=== PATIENT | male | born 2000 | race Caucasian/White ===

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

== ENCOUNTER 2021-01-20 04:00 | Emergency (ER) | payer OTHER ==
[~2021-01-20] VITALS: Ht 177.8 cm; Wt 83.9 kg
[2021-01-20 04:03] VITALS: BP 141/93
[2021-01-20] MEDS ORDERED: NAPR-54 PO (05:09)
[2021-01-20 05:13] VITALS: BP 141/93
== END 2021-01-20 05:12 | disposition home or self-care (01) ==
LOC: MED 04:00
DX: S13.9XXA Sprain of joints and ligaments of unspecified parts of neck, initial encounter (principal); X58.XXXA Exposure to other specified factors, initial encounter; Y93.89 Activity, other specified; Y92.89 Other specified places as the place of occurrence of the external cause; Y99.8 Other external cause status
CPT/HCPCS: 72050; 99283

== ENCOUNTER 2021-06-26 23:33 | Emergency (ER) | payer MEDICAID, OTHER ==
[~2021-06-26] VITALS: Ht 177.8 cm; Wt 88.5 kg
[~2021-06-26 23:33] MED LIST: NAPR-54 PO
[2021-06-26 23:40] VITALS: BP 149/90
--- NOTE | 2021-06-26 23:43 | NUR ---
to lobby a/w bed ambulatory
[2021-06-27] MEDS ORDERED: NAPR-54 PO (01:22)
[2021-06-27] MEDS ORDERED: SULF-59 PO (01:22)
[2021-06-27 01:39] VITALS: BP 149/90
== END 2021-06-27 01:26 | disposition home or self-care (01) ==
LOC: MED 23:33
DX: L03.111 Cellulitis of right axilla (principal); Z79.899 Other long term (current) drug therapy
CPT/HCPCS: 99283

== ENCOUNTER 2021-06-28 20:06 | Emergency (ER) | payer MEDICAID ==
[~2021-06-28] VITALS: Ht 177.8 cm; Wt 86.2 kg
[~2021-06-28 20:06] MED LIST changes: +SULF-59 PO
[2021-06-28 20:11] VITALS: BP 150/90
--- NOTE | 2021-06-28 20:11 | NUR ---
to bed ambulatory
--- NOTE | 2021-06-28 20:35 | NUR ---
PT AMBULATED TO CHAIR C.
--- NOTE | 2021-06-28 21:06 | NUR ---
PT AMBULATED W/O ASSIST TO ER BED 12
--- NOTE | 2021-06-28 21:07 | NUR ---
21 YO M BIB SELF FOR R AXILLA ABSCESS X 4 DAYS. PT DENIES FEVER CHILLS. R AXILLA REDNESS 3X3 ABSCESS NOTED. DENIES PAIN. ERMD AWARE. JUAN PABLO [facility] - OCTOBER
[2021-06-28] MEDS ORDERED: LIDOCAINE/EPI 1% 1:100000 20 ML VIAL INJ ONE ×2 (21:16→21:20)
--- NOTE | 2021-06-28 21:16 | NUR ---
VERBAL ORDER RECEIVED FROM DR. NAVARRO FOR LIDOCAINE 1% WITH EPI INJ. ORDER CARRIED OUT.
[2021-06-28 21:54] VITALS: BP 150/90
--- NOTE | 2021-06-28 21:54 | NUR ---
`Patient discharged with v/s stable. Written and verbal after care instructions given and explained. Patient verbalized understanding. Ambulatory with steady gait. All questions addressed prior to discharge. Advised to follow up with PMD.
== END 2021-06-28 21:54 | disposition home or self-care (01) ==
LOC: MED 20:06
DX: L02.411 Cutaneous abscess of right axilla (principal)
CPT/HCPCS: 10060; 99284; J2001

== ENCOUNTER 2021-08-21 16:57 | Emergency (ER) | payer MEDICAID ==
[~2021-08-21] VITALS: Ht 177.8 cm; Wt 95.7 kg
[2021-08-21 17:09] VITALS: BP 158/107
[2021-08-21] MEDS ORDERED: IBUP-2213 PO (17:34)
--- NOTE | 2021-08-21 17:42 | NUR ---
NO NURSING INTERVENTIONS GIVEN, NO NEED FOR COMPLETE ASSESSMENT
[2021-08-21 17:45] VITALS: BP 158/107
== END 2021-08-21 17:45 | disposition home or self-care (01) ==
LOC: MED 16:57
DX: S30.0XXA Contusion of lower back and pelvis, initial encounter (principal); Z79.899 Other long term (current) drug therapy; W19.XXXA Unspecified fall, initial encounter; Y93.89 Activity, other specified; Y92.89 Other specified places as the place of occurrence of the external cause; Y99.8 Other external cause status
CPT/HCPCS: 99282

== ENCOUNTER 2021-12-13 02:57 | Emergency (ER) | payer OTHER, MEDICAID ==
[~2021-12-13] VITALS: Ht 180.3 cm; Wt 89.4 kg
[~2021-12-13 02:57] MED LIST changes: +IBUP-2213 PO
[2021-12-13 03:03] VITALS: BP 143/77
[2021-12-13 03:09] VITALS: BP 143/77
--- NOTE | 2021-12-13 03:10 | NUR ---
pt taken to bed 2.
--- NOTE | 2021-12-13 03:17 | NUR ---
21/M BIB SELF C/O COUGH [id number]. PATIENT STATED HE IS CONGESTED. HE REPORTS YELLOW AND BLOOD IN SPUTUM IN THE MORNINGS. PATIENT STATED "I FEEL LIKE I HAVE SOMTHING LODGED IN MY THROAT". PT STATED THAT HES BEEN GETTING REGULAR COVID TEST FOR THE LAST WEEK WITH NEGATIVE RESULTS. SOME APPETITE CHANGESIN THE LAST WEEK. SKIN INTACT. LUNG SOUNDS CLEAR, WITH PRODUCTIVE COUGH. PATIENT DENIES CP, SOB, NAUSEA, VOMIT, DIARRHEA AT THIS TIME. PMHX DENIES MEDS DENIES NKA
--- NOTE | 2021-12-13 03:50 | NUR ---
DORA AT BEDSIDE ASSESSING PT
--- NOTE | 2021-12-13 03:50 | NUR ---
RAD AT BEDSIDE
--- NOTE | 2021-12-13 04:25 | NUR ---
PATIENT STABLE SITTING AT BEDSIDE. BED IN LOWEST POSITION AND LOCKED. ALL NEEDS MET AT THIS TIME.
--- NOTE | 2021-12-13 05:10 | NUR ---
The patient's care was reviewed and supervised by Sherin Sy RN, RN.
--- NOTE | 2021-12-13 05:15 | NUR ---
Patient discharged with v/s stable. Written and verbal after care instructions given and explained. Patient verbalized understanding. Ambulatory with steady gait. Advised to follow up with PMD.
--- NOTE | 2021-12-13 05:23 | NUR ---
Adonis gallegos in ED - 12/13/21 at 0525 by ACACIA PATIENT STABLE SITTING AT BEDSIDE. BED IN LOWEST POSITION AND LOCKED. ALL NEEDS MET AT THIS TIME.
== END 2021-12-13 05:15 | disposition home or self-care (01) ==
LOC: MED 02:57
DX: J20.9 Acute bronchitis, unspecified (principal)
CPT/HCPCS: 71045; 99283; Q0092

== ENCOUNTER 2022-01-10 17:00 | Emergency (ER) | payer MEDICAID, OTHER ==
[~2022-01-10] VITALS: Ht 177.8 cm; Wt 88.9 kg
[2022-01-10 17:04] VITALS: BP 128/78
--- NOTE | 2022-01-10 17:15 | NUR ---
21 Y/O MALE C/O PAIN IN THE L THIGH AFTER "SPIDER BITE". PT STATE HE HAS HAD TENDERNESS AND IRRITATION FOR APPROX. 2 DAYS. PT DENIES ACTUALLY SEEING THE SPIDER. PT DENIES DISCHARGE, FEVER OR CHILLS. PAIN IS INCREASED WITH TOUCH AND PRESSURE. PT REPORTS TAKING TYLENOL WITH NO SYMPTOMATIC RELIEF. PMH: DENIES NKA
[2022-01-10] MEDS ORDERED: CEPH-588 PO (18:14)
[2022-01-10 18:33] VITALS: BP 128/78
== END 2022-01-10 18:33 | disposition home or self-care (01) ==
LOC: MED 17:00
DX: L03.116 Cellulitis of left lower limb (principal)
CPT/HCPCS: 99283

== ENCOUNTER 2022-11-26 14:13 | Emergency (ER) | payer OTHER ==
[~2022-11-26] VITALS: Ht 177.8 cm; Wt 88.5 kg
[~2022-11-26 14:13] MED LIST changes: +CEPH-588 PO
--- NOTE | 2022-11-26 14:35 | NUR ---
22/M WALKED IN C/O COUGH ONSET 3 DAYS ACCOMPANIED BY CONGESTION. AFEBRILE AT TRIAGE. REPORTS TAKING MUCINEX LAST NIGHT AND IBUPROFEN THIS AM WITH NO RELIEF PMH: DENIES
[2022-11-26 14:37] VITALS: BP 145/79
--- NOTE | 2022-11-26 14:41 | NUR ---
PT SWABBED FOR COVID AND FLU
[2022-11-26] MEDS ORDERED: PIPERACILLIN/TAZOBACTAM 3.375 GM VIAL IV ONE (15:35)
[2022-11-26] MEDS ORDERED: PROM118S5 PO (15:51)
== END 2022-11-26 16:20 | disposition home or self-care (01) ==
LOC: MED 14:13
DX: J06.9 Acute upper respiratory infection, unspecified (principal); Z20.822 Contact with and (suspected) exposure to COVID-19; Z72.89 Other problems related to lifestyle; Z79.899 Other long term (current) drug therapy
CPT/HCPCS: 71045; 99284; J2543